=== PATIENT | female | born 1985 | race Caucasian/White ===

== ENCOUNTER 2025-05-01 03:03 | Outpatient (CLI) | payer BC, SELFPAY ==
[2025-05-01 16:17] LABS: Hemoglobin A1C 5.2 % (<5.7)
[2025-05-01 17:00] LABS: Anion Gap 6.4 mmol/L (3-11); BUN 22 mg/dL (7-18); CO2 29.6 mmol/L (21.0-32.0); CREATININE 0.8 mg/dL (0.55-1.02); Calculated LDL 128 mg/dL (<100); Chloride 100 mmol/L (98-107); Cholesterol 200 mg/dL (<200); Estimated GFR 97.26 (mL/min/1.73m2); Glucose 94 mg/dL (74-106); HDL Cholesterol 51 mg/dL (>or=50); Potassium 3.5 mmol/L (3.5-5.1); Sodium 136 mmol/L (136-145); Triglyceride 109 mg/dL (<150)
== END 2025-05-01 03:04 | disposition home or self-care (01) ==
LOC: LBO 03:03
PROVIDERS: PCP Nurse Practitioner Family; Visit Provider Nurse Practitioner Family
DX: Z00.00 Encounter for general adult medical examination without abnormal findings (principal)
CPT/HCPCS: 36415; 80048; 80061; 83036

== ENCOUNTER 2025-05-08 12:49 | Outpatient (CLI) | payer BC, SELFPAY ==
[2025-05-08 13:19] LABS: TSH (W/Ref FT4) 1.64 uIU/mL (0.36-3.74)
== END 2025-05-08 12:50 | disposition home or self-care (01) ==
PROVIDERS: PCP Nurse Practitioner Family; Visit Provider Nurse Practitioner Family
DX: E66.9 Obesity, unspecified (principal)
CPT/HCPCS: 36415; 84443